=== PATIENT | female | born 1975 | race Caucasian/White ===

== ENCOUNTER 2017-12-10 13:02 | Emergency (ER) | payer OTHER ==
[~2017-12-10] VITALS: Ht 170.2 cm; Wt 72.0 kg
[~2017-12-10 13:02] MED LIST: AUGM875T PO; BENZ100 PO; CETI5TAB2 PO; PRED10 PO; Z.0.BCPILL PO; ZITH250T PO; ZOFR4TAB3 SL
[2017-12-10 13:05] VITALS: BP 157/92; PULSE 90; RESP 20; TEMP 97.8; O2SAT 100
[2017-12-10] MEDS ORDERED: LISD50 (13:15)
[2017-12-10] MEDS ORDERED: YASM3TAB2 PO (13:15)
--- NOTE | 2017-12-10 13:21 | PD ---
HPI Chief Complaint: Respiratory Symptoms Time Seen by Provider: 13:15 Travel History International Travel<30 days: No Contact w/Intl Traveler<30days: No Traveled to known affect area: No History of Present Illness HPI Examined in the presence of a female nurse. 42-year-old female presents for evaluation of left-sided anterior rib pain. She reports this morning she was doing multiple sit-ups and pull ups. Since then she developed some soreness to the anterior left lower rib cage focally. Pain is sharp pain that is reproduced when she palpates a particular area and when she breathes in deep. She reports that she had a similar pain 3 years ago when she had a rib fracture in the same area. Denies any cough, congestion, abdominal pain, hemoptysis, nausea or vomiting, leg swelling. Has not tried using any kvlv-jul-[id number] medication for symptom relief. She has no other complaints at this time. PFSH Past Medical History Cancer: No Diabetes: No Diminished Hearing: No Hepatitis: No Hiatal Hernia: No Thyroid Disease: No ?: Not LMP: 11/29/17 Tubal Ligation: Yes Past Surgical History Genitourinary Surgery: Yes (KIDNEY STONE LITHOTRIPSEY) Pacemaker: Yes Other Surgery: Yes Social History Alcohol Use: Yes ([facility]) Tobacco Use: No Substance Use: No Allergies-Medications (Allergen,Severity, Reaction): Coded Allergies: codeine (Unverified Allergy, Severe, Hives, 12/10/17) Reported Meds & Prescriptions Reported Meds & Active Scripts Active Reported Joana (Drospirenone-Ethinyl Estradiol) 3-0.03 Mg Tab 1 Tab PO DAILY Vyvanse (Lisdexamfetamine Dimesylate) 50 Mg Cap 50 Mg DAILY Review of Systems General / Constitutional: No: Fever, Chills Cardiovascular: Positive: Chest Pain or Discomfort Respiratory: No: Cough, Hemoptysis Gastrointestinal: No: Nausea, Vomiting, Abdominal Pain Musculoskeletal: Positive: Pain Physical Exam Narrative GENERAL: Well-developed well-nourished female in no acute distress. Vital signs reviewed. SKIN: Warm and dry. No rash, no bruising or soft tissue swelling HEAD: Atraumatic. Normocephalic. EYES: Pupils equal and round. No scleral icterus. No injection or drainage. ENT: No nasal bleeding or discharge. Mucous membranes pink and moist. NECK: Trachea midline. No JVD. CARDIOVASCULAR: Regular rate and rhythm. No murmur appreciated. RESPIRATORY: No accessory muscle use. Clear to auscultation. Breath sounds equal bilaterally. GASTROINTESTINAL: Abdomen soft, non-tender, nondistended. Hepatic and splenic margins not palpable. MUSCULOSKELETAL: No obvious deformities. Focal tenderness to palpation to the anterior left lower rib cage inferior to the breast. NEUROLOGICAL: Awake and alert. No obvious cranial nerve deficits. Motor grossly within normal limits. Normal speech. Data Data Last Documented VS Vital Signs Date Time Temp Pulse Resp B/P (MAP) Pulse Ox O2 Delivery O2 Flow Rate FiO2 12/10/17 13:05 97.8 90 20 157/92 (113) 100 Room Air Orders Orders Chest, Pa & Lat (12/10/17 ) Ed Discharge Order (12/10/17 14:07) Ketorolac Inj (Toradol Inj) (12/10/17 14:15) MDM Medical Decision Making Medical Screen Exam Complete: Yes Emergency Medical Condition: Yes Medical Record Reviewed: Yes Differential Diagnosis Costochondritis, rib fracture, pneumothorax, pleurisy, intercostal muscle strain , pulmonary embolism, hemothorax, rhabdomyolysis, shingles Narrative Course 39-year-old female with Left lower chest wall pain after doing at exercises and pull ups this morning. On examination she has focal tenderness to palpation to left lower rib cage. She is concerned about her history of previous rib fracture in the same area and is concerned that she may have somehow fractured her rib from her exercises this morning. X-ray imaging of the chest was obtained revealing no acute abnormalities. Recommended aegv-eal-utvhbdn NSAID use. She will also be given a prescription for Lidoderm patches. She is stable for discharge. Diagnosis Primary Impression: Chest wall pain Additional Instructions: Kucl-kck-hhjefho ibuprofen or naproxen. Lidoderm patches as needed. Return for any emergent medical conditions. Med/Other Pt SpecificInfo: Prescription(s) given Scripts Lidocaine Patch 12 HR (Lidocaine Patch 12 HR) 5 % Patch 1 PATCH TOPICAL DAILY Y for PAIN, #1 BOX 1 Refill Remove patch after 12 hours Prov: Jennifer Felipe MD 12/10/17 Disposition: 01 DISCHARGE HOME Condition: Stable Galen Varghese Dec 10, 2017 13:21
--- NOTE | 2017-12-10 13:57 | RADRPT ---
EXAM DATE/TIME: 12/10/2017 13:41 [facility] COMPARISON: CHEST PA & LAT, December 16, 2015, 20:31. INDICATIONS : Left side rib pain under breast after lifting weights. Previous injury on left side rib. MEDICAL HISTORY : None. SURGICAL HISTORY : None. ENCOUNTER: Initial ACUITY: 1 day PAIN SCORE: 7/10 LOCATION: Bilateral chest FINDINGS: PA and lateral views of the chest demonstrate the lungs to be symmetrically aerated without evidence of mass, infiltrate or effusion. The cardiomediastinal contours are unremarkable. Osseous structure s are intact. CONCLUSION: No acute disease. Yonis Beauchamp MD on December 10, 2017 at 13:54 Board Certified Radiologist. This report was verified electronically.
[2017-12-10] MEDS ORDERED: LIDO1PAD52 TOPICAL (14:08)
[2017-12-10] MEDS ORDERED: KETOROLAC TROMETHAMINE 60 MG/2 ML (IM) VIAL IM ONE (14:15)
== END 2017-12-10 14:26 | disposition home or self-care (01) ==
LOC: NEPK 13:02
DX: R07.89 Other chest pain (principal); Z79.899 Other long term (current) drug therapy; Z88.5 Allergy status to narcotic agent
CPT/HCPCS: 71046; 96372; 99283; J1885